=== PATIENT | female | born 1980 | race American Indian/Alaskan Native ===

== ENCOUNTER 2018-02-19 18:07 | Emergency (ER) | payer OTHER, MEDICAID ==
[2018-02-19] MEDS ORDERED: MOTRIN PO ONE (20:29)
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
[2018-02-19 23:17] VITALS: BP 137/80
== END 2018-02-19 23:14 | disposition home or self-care (01) ==
LOC: ED 18:07
DX: S86.911A Strain of unspecified muscle(s) and tendon(s) at lower leg level, right leg, initial encounter (principal); S13.4XXA Sprain of ligaments of cervical spine, initial encounter; I10 Essential (primary) hypertension; F17.200 Nicotine dependence, unspecified, uncomplicated; V89.2XXA Person injured in unspecified motor-vehicle accident, traffic, initial encounter; Y93.89 Activity, other specified; Y99.8 Other external cause status; Y92.410 Unspecified street and highway as the place of occurrence of the external cause
CPT/HCPCS: 72040

== ENCOUNTER 2018-09-09 07:56 | Day surgery (SDC) | payer MEDICAID, OTHER ==
[2018-09-09] MEDS ORDERED: LACTATED RINGERS 1,000 ML IV SCH (08:06)
--- NOTE | 2018-09-09 08:12 | Short Stay Summary ---
Short Stay Documentation Date of service: 09/09/18 Narrative H&P: 37y/o with findings of moderate cervical dysplasia. Patient was found to have multifocal dysplasia. The patient has elected for surgical management. - History Principal diagnosis: Moderate cervical dysplasia Past Medical History: hypertension Past Surgical History: , Other (tubal ligation) Social history: , smoking - Allergies and Medications Current Medications: Allergies No Known Allergies Allergy (Unverified 09/03/18 17:11) Home Medications Medication Instructions Recorded Confirmed Last Taken Type amLODIPine [Norvasc] 5 mg PO DAILY 09/03/18 09/03/18 Unknown History Active Medications Lactated Ringer's (Lactated Ringers) 1,000 mls @ 75 mls/hr IV DIRECT JJ Stop: 09/09/18 23:59 - Physical exam General appearance: no acute distress Integumentary: no rash HEENT: Atraumatic Lungs: Clear to auscultation Breasts: deferred Heart: Regular rate Gastrointestinal: normal Female Genitourinary: deferred Rectal Exam: deferred Extremities: no ischemia Neurological: Normal gait - Brief post op/procedure progress note Date of procedure: 09/09/18 Pre-op diagnosis: moderate cervical dysplasia Post-op diagnosis: same Procedure: Loop electrocautery excision procedure Endocervical curettage Anesthesia: LINAA Surgeon: MILLICENT CANTRELL Estimated blood loss: other (100 mL) Pathology: list (ectocervical tissue; endocervical tissue; endocervical curettage) Specimen disposition: to lab Condition: stable - Hospital course Hospital course: The patient was admitted the day of surgery and underwent a loop electrocautery excision procedure. Please see operative note for details of surgery. Postoperative course was uneventful. - Disposition Condition at discharge: Good Disposition: [id number] TO HOME OR SELFCARE Short Stay Discharge Plan Activity: other (pelvic rest for 4 weeks) Diet: regular Additional Instructions: Scheduled follow-up with Dr. Pan in 4 weeks Prescriptions: Ibuprofen [Motrin] 800 mg PO Q8HR PRN #60 tablet PRN Reason: Pain, Mild (1-3) oxyCODONE /ACETAMINOPHEN [Percocet 5/325] 1 tab PO Q6HR PRN #20 tablet PRN Reason: Pain
[2018-09-09] MEDS ORDERED: ANCEF/STERILE WATER 2 GM/20 ML 2 GM/20 ML SYRINGE IV NR (09:00)
[2018-09-09] MEDS ORDERED: VERSED IV NR (09:39)
[2018-09-09] MEDS ORDERED: MONSEL'S TP ONE (10:29)
[2018-09-09] MEDS ORDERED: LUGOL'S SOLUTION 5% TP ONE ×2 (10:29→11:21)
[2018-09-09] MEDS ORDERED: SUBLIMAZE ONE ×2 (10:39→11:17)
[2018-09-09] MEDS ORDERED: VERSED ONE (10:39)
[2018-09-09] MEDS ORDERED: DIPRIVAN 10 MG/ML IV ONE (10:39)
[2018-09-09] MEDS ORDERED: ZOFRAN ONE (10:56)
[2018-09-09] MEDS ORDERED: TORADOL ONE (10:56)
[2018-09-09] MEDS ORDERED: DILAUDID IV PRN (11:14)
[2018-09-09] MEDS ORDERED: PERCOCET 5/325 PO PRN (11:14)
--- NOTE | 2018-09-09 11:14 | Anesthesia Consultation ---
Anesthesia Consult and Med Hx Date of service: 09/09/18 - Airway Anesthetic Teeth Evaluation: Good ROM Head & Neck: Adequate Mental/Hyoid Distance: Adequate Mallampati Class: Class II Intubation Access Assessment: Probably Good - Pulmonary Exam CTA: Yes - Cardiac Exam Cardiac Exam: RRR - Pre-Operative Health Status ASA Pre-Surgery Classification: ASA2 Proposed Anesthetic Plan: General - Pulmonary Hx Smoking: Yes Hx Asthma: No Hx Respiratory Symptoms: No - Cardiovascular System Hx Hypertension: Yes (took amlodipine today) Hx Heart Attack/AMI: No Hx Percutaneous Transluminal Coronary Angioplasty (PTCA): No - Central Nervous System Hx Seizures: No CVA: No - Gastrointestinal Hx Gastroesophageal Reflux Disease: No - Endocrine Hx Renal Disease: No Hx Liver Disease: No Hx Insulin Dependent Diabetes: No Hx Non-Insulin Dependent Diabetes: No Hx Thyroid Disease: No - Other Systems Hx Alcohol Use: Yes (Occas) Hx Cancer: No Hx Obesity: Yes - Additional Comments Anesthesia Medical History Comments: No hx anesthetic complications.
--- NOTE | 2018-09-09 11:14 | Anesthesia Day of Surgery ---
Anesthesia Day of Surgery - Day of Surgery Patient Examined: Yes Patient H&P Reviewed: Yes Patient is NPO: Yes
[2018-09-09] MEDS ORDERED: NACL 0.9% IR ONE (11:21)
[2018-09-09] MEDS ORDERED: LACTATED RINGERS 1,000 ML ONE (11:36)
--- NOTE | 2018-09-09 11:42 | Operative Report ---
Operative Report Operative Report: Date of procedure: 09/09/2018 Pre-operative diagnosis: Moderate cervical dysplasia Post-operative diagnosis: Same as above Procedure name(s): Loop electrocautery excision procedure; endocervical curettage Surgeon: Elida Pan M.D. Cigarette Examiner: None Estimated blood loss: 100 mL Anesthesia: General endotracheal anesthesia Findings Nonstaining Lugol's area on the ectocervix at 6:00 Indication: 37-year-old with a history of moderate cervical dysplasia involving the rectal and endocervical canal. Patient elected to undergo surgical management. Procedure The patient was taken to the operating room and given general endotracheal anesthesia without complication. A timeout was performed prior to proceeding with the operation. The patient was prepped and draped in the normal sterile fashion. A coated bivalve speculum was placed on the patient's vagina. Lugol solution was placed on the ectocervix. There was evidence of a nonstaining area at the 5 to 6 o'clock position. A 20 x 15 mm loop was used to excise the transformation zone. A smaller loop was applied to remove a more extensive endocervical tissue. An endocervical curettage was performed. Extensive cauterization of the cervical bed was performed. A [id number] stitch was placed through the cervical tissue for hemostasis. Monsel solution was applied along with Surgicel for hemostasis. The vaginal instruments were then removed atraumatically. The patient was then successfully extubated and taken to the r ecovery room in stable condition. All sponge laps and needle counts correct 2.
[2018-09-09 13:38] VITALS: BP 116/68
--- NOTE | 2018-09-09 16:55 | Post Anesthesia Evaluation ---
- Post Anesthesia Evaluation Patient Participated: Yes Airway Patent: Yes Stable Respiratory Function: Yes Nausea/Vomiting: No Temp > 96.8F: Yes Pain Manageable: Yes Adequeate Hydration: Yes Anesthesia Complications: No
== END 2018-09-09 13:15 | disposition home or self-care (01) ==
LOC: OR 07:56
PROVIDERS: ATTEND Obstetrics & Gynecology
DX: N87.1 Moderate cervical dysplasia (principal); I10 Essential (primary) hypertension; F17.210 Nicotine dependence, cigarettes, uncomplicated; E66.9 Obesity, unspecified; Z68.30 Body mass index [BMI] 30.0-30.9, adult; Z72.89 Other problems related to lifestyle; Z98.890 Other specified postprocedural states; Z79.01 Long term (current) use of anticoagulants; Z79.899 Other long term (current) drug therapy
CPT/HCPCS: 57522; 81025; 88305; 88307; J0690; J1885; J2250; J2405; J2704; J3010; J7120

== ENCOUNTER 2018-11-04 10:03 | Outpatient (CLI) | payer MEDICAID ==
[2018-11-04 11:47] LABS: Hepatitis C Virus Antibody Non-Reactive (NonReactive)
[2018-11-04 12:35] LABS: Hepatitis B Surface Antigen Non-Reactive (Negative)
== END 2018-11-04 10:04 | disposition home or self-care (01) ==
LOC: LAB 10:03
PROVIDERS: ATTEND Internal Medicine
DX: I10 Essential (primary) hypertension (principal); E55.9 Vitamin D deficiency, unspecified; E66.01 Morbid (severe) obesity due to excess calories; D64.9 Anemia, unspecified; Z87.891 Personal history of nicotine dependence
CPT/HCPCS: 36415; 80074; 82306

== ENCOUNTER 2019-01-27 09:26 | Outpatient (CLI) | payer MEDICAID ==
[2019-01-27 10:21] LABS: Hematocrit 42.7 % (30.3-42.9); Hemoglobin 14.8 gm/dl (10.1-14.3); Mean Corpuscular HGB Conc 35 % (30-34); Mean Corpuscular Volume 85 fl (79-97); Platelet Count 393 K/mm3 (140-440); Red Blood Count 5.03 M/mm3 (3.65-5.03); Red Cell Distribution Width 15.3 % (13.2-15.2)
[2019-01-27 10:44] LABS: Alanine Aminotransferase 21 units/L (7-56); Albumin 4.1 g/dL (3.9-5); BUN/Creatinine Ratio 11; Blood Urea Nitrogen 8 mg/dL (7-17); Calcium 9.1 mg/dL (8.4-10.2); Chol/HDL Ratio 3.79 %; HDL Cholesterol 39 mg/dL (40-59); Hemolysis Index 1; LDL Cholesterol,Direct 106 mg/dL (50-130)
[2019-01-29 11:27] LABS: Vitamin D, 25-OH, D2 <4 ng/mL
== END 2019-01-27 09:27 | disposition home or self-care (01) ==
LOC: LAB 09:26
PROVIDERS: ATTEND Internal Medicine
DX: Z00.01 Encounter for general adult medical examination with abnormal findings (principal); E55.9 Vitamin D deficiency, unspecified; E66.09 Other obesity due to excess calories; R73.9 Hyperglycemia, unspecified; I10 Essential (primary) hypertension
CPT/HCPCS: 36415; 80053; 80061; 82306; 82607; 83036; 84443; 85027

== ENCOUNTER 2019-06-23 09:38 | Outpatient (CLI) | payer MEDICAID ==
[2019-06-23 11:17] LABS: Chol/HDL Ratio 4.54 %
[2019-06-26 13:46] LABS: Vitamin D, 25-OH, D2 <4 ng/mL
== END 2019-06-23 09:39 | disposition home or self-care (01) ==
LOC: LAB 09:38
PROVIDERS: ATTEND Internal Medicine
DX: E55.9 Vitamin D deficiency, unspecified (principal); E66.09 Other obesity due to excess calories
CPT/HCPCS: 36415; 80061; 82306

== ENCOUNTER 2020-11-21 09:38 | Outpatient (CLI) | payer MEDICAID ==
--- NOTE | 2020-11-21 11:03 | XRay Report ---
CLINICAL DATA: NASOPHARYNGITIS TECHNICAL DATA: Dodson, PA and lateral views. FINDINGS: The frontal sinus, ethmoids sinus, maxillary sinus, and sphenoid sinus are well aerated. No evidence of mucosal thickening. Slight septal deviation to the left. Bony architecture is normal. IMPRESSION: Normal sinus series. Signer Name: Tramaine Reed MD Signed: 11/21/2020 10:58 AM Workstation Name: [id number]
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
== END 2020-11-21 09:39 | disposition home or self-care (01) ==
LOC: FLUORO 09:38
PROVIDERS: ATTEND Otolaryngology
DX: K21.9 Gastro-esophageal reflux disease without esophagitis (principal); J31.1 Chronic nasopharyngitis
CPT/HCPCS: 70220; 74220